=== PATIENT | female | born 1950 | race Caucasian/White ===

== ENCOUNTER 2017-06-16 07:55 | Day surgery (SDC) | payer MEDICARE, BC ==
[~2017-06-16 07:55] MED LIST: Midazolam 1 MG/ML 2 ML SDV ONE; Propofol 200 MG/20 ML SDV ONE; fentaNYL 100 MCG/2 ML SDV ONE
[2017-06-16] MEDS ORDERED: Lactated Ringers 1,000 ML IV SCH (08:15)
[2017-06-16 10:57] VITALS: BP 142/85
--- NOTE | 2017-06-16 12:15 | OR ---
DATE OF PROCEDURE: 06/16/2017 PREOPERATIVE DIAGNOSIS: Colon cancer screening. POSTOPERATIVE DIAGNOSIS: Unremarkable colonoscopy. PROCEDURE: Colonoscopy to the cecum. SURGEON: Ajay Lewis MD. ANESTHESIA: IV anesthesia with monitored anesthesia care. INDICATION: This 67-year-old white female is referred for a colonoscopy for colon cancer screening. She says her last colonoscopic exam was done ten years ago. I counseled her for the procedure including risks and alternatives, and she gave her informed consent to proceed. DESCRIPTION OF PROCEDURE: The patient was placed in the left lateral decubitus position. IV anesthesia was administered by the Anesthesia Service. Time-out was held. A rectal exam was performed, which was unremarkable. The flexible video Olympus colonoscope was introduced through her anus, up her rectum, and out her colon all way to the cecum. Once the cecum was reached, the scope was slowly withdrawn, examining the mucosa throughout. No mucosal abnormalities were noted. The scope was retroflexed in the rectum with the distal rectum appearing unremarkable. The scope was straightened and removed. She tolerated the procedure well. Ajay Lewis MD /[id number] MTDD
== END 2017-06-16 11:20 | disposition home or self-care (01) ==
LOC: JP.SDS 07:55
PROVIDERS: ATTEND Surgery
DX: Z12.11 Encounter for screening for malignant neoplasm of colon (principal); Z88.2 Allergy status to sulfonamides
CPT/HCPCS: G0121; J2250; J2704; J3010; J7120

== ENCOUNTER 2021-06-18 08:58 | Emergency (ER) | payer MEDICARE ==
[2021-06-18] MEDS ORDERED: Sodium Chloride 0.9% 10 ML Syringe FLUSH PRN (10:36)
[2021-06-18] MEDS ORDERED: HYDROmorphone 0.5 MG/0.5 ML Syringe IVPUSH ONE (10:37)
--- NOTE | 2021-06-18 10:43 | EDM.PDOC ---
ED HPI GENERAL MEDICAL PROBLEM - General Chief Complaint: Back Pain or Injury Stated Complaint: LOWER BACK PAIN Time Seen by Provider: 06/18/21 10:25 Source of Information: Reports: Patient History Limitations: Reports: No Limitations - History of Present Illness INITIAL COMMENTS - FREE TEXT/NARRATIVE: 71 yo generally healthy female presents with pretty severe low back pain that began while sitting about 7:30pm last night. Pain is constant and not worse with movement. There was no injury. Denies nausea, fever, pain with palpation, hematuria, dysuria or bloody stools. Her BM this AM was loose. No hx of the same. Denies BP above greg 120's on lisinopril 10 mg. Onset: Sudden Onset Date: 06/17/21 Onset Time: 19:30 Duration: Hour(s):, Constant Location: Reports: Back (low) Quality: Reports: Ache Severity: Moderate (8/10) Improves with: Reports: None Worsens with: Reports: None Context: Reports: Other (see HPI) Associated Symptoms: Reports: No Other Symptoms. 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) Right Lower Back Pain Score (Numeric/FACES): 8 - Related Data Allergies Allergy/AdvReac Type Severity Reaction Status Date / Time Sulfa (Sulfonamide Allergy Severe Hives Verified 06/18/21 09:36 Antibiotics) Home Meds: Home Meds Calcium Carb, Citrate/Vit D3 [Calcium + D3 ER Tablet] 1 tab PO BID 06/14/17 [History] Lutein 10 mg PO DAILY 06/14/17 [History] lisinopriL [Lisinopril] 10 mg PO DAILY 06/18/21 [History] Past Medical History - Past Health History Medical/Surgical History: Denies Medical/Surgical History HEENT History: Reports: Impaired Vision Other HEENT History: wears glasses Cardiovascular History: Reports: High Cholesterol, Hypertension Gastrointestinal History: Reports: None - Infectious Disease History Infectious Disease History: Reports: Chicken Pox, Measles, Mononucleosis, Mumps, Rubella - Past Surgical History HEENT Surgical History: Reports: None Cardiovascular Surgical History: Reports: None GI Surgical History: Reports: Colonoscopy Dermatological Surgical History: Reports: None Social & Family History - Tobacco Use Tobacco Use Status *Q: Never Tobacco User - Caffeine Use Caffeine Use: Reports: Tea - Recreational Drug Use Recreational Drug Use: No ED ROS GENERAL - Review of Systems Review Of Systems: See Below Constitutional: Denies: Fever, Chills HEENT: Reports: No Symptoms Respiratory: Reports: No Symptoms Cardiovascular: Reports: No Symptoms. Denies: Chest Pain Endocrine: Reports: No Symptoms GI/Abdominal: Reports: Abdominal Pain (mild, diffuse), Diarrhea (once). Denies: Black Stool, Bloody Stool, Constipation, Hematemesis, Hematochezia, Melena, Nausea, Vomiting : Reports: No Symptoms. Denies: Dysuria, Hematuria Musculoskeletal: Reports: Back Pain (low) Skin: Reports: No Symptoms Neurological: Reports: No Symptoms ED EXAM,LOWER BACK PAIN/INJURY - Physical Exam Exam: See Below Exam Limited By: No Limitations General Appearance: Alert, WD/WN, No Apparent Distress Eye Exam: Bilateral Eye: Normal Inspection Ears: Normal External Exam, Normal Canal, Hearing Grossly Normal, Normal TMs Nose: Normal Inspection, No Blood Throat/Mouth: Normal Inspection, Normal Lips, Normal Oropharynx, Normal Voice, No Airway Compromise Head: Atraumatic, Normocephalic Neck: Normal Inspection, Supple, Non-Tender, Limited Range of Motion Respiratory/Chest: No Respiratory Distress, Lungs Clear, Normal Breath Sounds, No Accessory Muscle Use Cardiovascular: Regular Rate, Rhythm, No Edema GI/Abdominal: Normal Bowel Sounds, Soft, Non-Tender, No Distention. No: Distended Back Exam: Normal Inspection, Other (mild increase in her pain on palpation just above the post iliac crest on the right. ). No: CVA Tenderness (R), CVA Tenderness (L) Extremities: Normal Inspection, Normal Range of Motion, Non-Tender, No Pedal Edema. No: Pedal Edema Neurological: Alert, Normal Mood/Affect, CN II-XII Intact, No Motor/Sensory Deficits, Oriented x 3 Psychiatric: Normal Affect, Normal Mood Skin Exam: Warm, Dry, Intact, Normal Color, No Rash Course - Vital Signs Last Recorded V/S: Last Vital Signs Temp 36.6 C 06/18/21 09:35 Pulse 117 H 06/18/21 13:09 Resp 16 06/18/21 09:35 BP 168/82 H 06/18/21 13:09 Pulse Ox 97 06/18/21 13:09 - Orders/Labs/Meds Orders: Active Orders 24 hr Category Date Time Status NS + KCl 20mEq/L [Normal Saline with 20 mEq KCl] 1,000 Med 06/18/21 12:15 A ctive ml IV ASDIRECTED Sodium Chloride 0.9% [Saline Flush] Med 06/18/21 10:36 Active 10 ml FLUSH ASDIRECTED PRN Saline Lock Insert [OM.PC] Routine Oth 06/18/21 10:36 Ordered Medication Orders Potassium Chloride/Sodium Chloride (Normal Saline With 20 Meq Kcl) 1,000 mls @ 1,000 mls/hr IV ASDIRECTED JOHN Last Admin: 06/18/21 12:40 Dose: 1,000 mls/hr Documented by: PREILOR Sodium Chloride (Sodium Chloride 0.9% 10 Ml Syringe) 10 ml FLUSH ASDIRECTED PRN PRN Reason: Keep Vein Open Last Admin: 06/18/21 11:01 Dose: 10 ml Documented by: [email or web address] Labs: Laboratory Tests 06/18/21 06/18/21 06/18/21 Range/Units 10:44 10:45 10:45 WBC 11.7 H (4.5-11.0) K/uL RBC 4.53 (3.30-5.50) M/uL Hgb 14.2 (12.0-15.0) g/dL Hct 43.7 (36.0-48.0) % MCV 97 (80-98) fL MCH 31 (27-31) pg MCHC 33 (32-36) % Plt Count 327 (150-400) K/uL D-Dimer, Quantitative (0.0-500.0) ng/mL Sodium 138 L (140-148) mmol/L Potassium 3.8 (3.6-5.2) mmol/L Chloride 101 (100-108) mmol/L Carbon Dioxide 27 (21-32) mmol/L Anion Gap 13.8 (5.0-14.0) mmol/L BUN 12 (7-18) mg/dL Creatinine 1.0 (0.6-1.0) mg/dL Est Cr Clr Drug Dosing 47.37 mL/min Estimated GFR (MDRD) 55 L (>60) Glucose 151 H (74-106) mg/dL Calcium 9.5 (8.5-10.1) mg/dL Troponin I High Sens 9.7 (<=60.3) pg/mL C-Reactive Protein (0.0-0.3) mg/dL TSH, Ultra Sensitive (0.358-3.740) uIU/mL Urine Color Yellow (YELLOW) Urine Appearance Clear (CLEAR) Urine pH 6.5 (5.0-8.0) Ur Specific [place] >= 1.030 (1.008-1.030) Urine Protein 30 H (NEGATIVE) mg/dL Urine Glucose (UA) 100 H (NEGATIVE) mg/dL Urine Ketones Negative (NEGATIVE) mg/dL Urine Occult Blood Trace-lysed H (NEGATIVE) Urine Nitrite Negative (NEGATIVE) Urine Bilirubin Negative (NEGATIVE) Urine Urobilinogen 0.2 (0.2-1.0) EU/dL Ur Leukocyte Esterase Negative (NEGATIVE) Urine RBC Not seen (0-5) Urine WBC 0-5 (0-5) Ur Epithelial Cells Few Amorphous Sediment Not seen Urine Bacteria Not seen Urine Mucus Moderate SARS CoV-2 RNA Rapid RENÉ 06/18/21 06/18/21 06/18/21 Range/Units 10:45 10:45 11:45 WBC (4.5-11.0) K/uL RBC (3.30-5.50) M/uL Hgb (12.0-15.0) g/dL Hct (36.0-48.0) % MCV (80-98) fL MCH (27-31) pg MCHC (32-36) % Plt Count (150-400) K/uL D-Dimer, Quantitative 822.05 H (0.0-500.0) ng/mL Sodium (140-148) mmol/L Potassium (3.6-5.2) mmol/L Chloride (100-108) mmol/L Carbon Dioxide (21-32) mmol/L Anion Gap (5.0-14.0) mmol/L BUN (7-18) mg/dL Creatinine (0.6-1.0) mg/dL Est Cr Clr Drug Dosing mL/min Estimated GFR (MDRD) (>60) Glucose (74-106) mg/dL Calcium (8.5-10.1) mg/dL Troponin I High Sens (<=60.3) pg/mL C-Reactive Protein 0.19 (0.0-0.3) mg/dL TSH, Ultra Sensitive 0.684 (0.358-3.740) uIU/mL Urine Color (YELLOW) Urine Appearance (CLEAR) Urine pH (5.0-8.0) Ur Specific [place] (1.008-1.030) Urine Protein (NEGATIVE) mg/dL Urine Glucose (UA) (NEGATIVE) mg/dL Urine Ketones (NEGATIVE) mg/dL Urine Occult Blood (NEGATIVE) Urine Nitrite (NEGATIVE) Urine Bilirubin (NEGATIVE) Urine Urobilinogen (0.2-1.0) EU/dL Ur Leukocyte Esterase (NEGATIVE) Urine RBC (0-5) Urine WBC (0-5) Ur Epithelial Cells Amorphous Sediment Urine Bacteria Urine Mucus SARS CoV-2 RNA Rapid RENÉ Negative Meds: Medications Generic Name Dose Route Start Last Admin Trade Name Freq PRN Reason Stop Dose Admin Potassium Chloride/Sodium Chloride 1,000 mls @ 1,000 mls/hr 06/18/21 12:15 06/18/21 12:40 Normal Saline With 20 Meq Kcl IV 1,000 mls/hr ASDIRECTED JOHN Administration Sodium Chloride 10 ml 06/18/21 10:36 06/18/21 11:01 Sodium Chloride 0.9% 10 Ml Syringe FLUSH 10 ml ASDIRECTED PRN Administration Keep Vein Open Discontinued Medications Generic Name Dose Route Start Last Admin Trade Name Freq PRN Reason Stop Dose Admin Acetaminophen 1,000 mg 06/18/21 11:28 06/18/21 12:38 Acetaminophen 500 Mg Tab PO 06/18/21 11:29 1,000 mg ONETIME ONE Administration Hydromorphone HCl 0.5 mg 06/18/21 10:37 06/18/21 11:01 Hydromorphone 0.5 Mg/0.5 Ml Syringe IVPUSH 06/18/21 10:38 0.5 mg ONETIME ONE Administration - Re-Assessments/Exams Free Text/Narrative Re-Assessment/Exam: 06/18/21 11:28 pain is better after Dilaudid. Still tachy with no respiratory sx's. Will check a Covid test. Free Text/Narrative Re-Assessment/Exam: 06/18/21 14:02 Feels a lot better after our interventions. Still not clear what is at the root of her presenting symptoms. Departure - Departure Time of Disposition: 14:03 Disposition: Home, Self-Care 01 Condition: Fair Clinical Impression: Tachycardia Low back pain Qualifiers: Chronicity: acute Back pain laterality: right Sciatica presence: without sciatica Qualified Code(s): M54.50 - Low back pain, unspecified HTN (hypertension) Qualifiers: Hypertension type: unspecified Qualified Code(s): I10 - Essential (primary) hypertension - Discharge Information *PRESCRIPTION DRUG MONITORING PROGRAM REVIEWED*: Not Applicable *COPY OF PRESCRIPTION DRUG MONITORING REPORT IN PATIENT HUGO: Not Applicable Instructions: Managing Your Hypertension Referrals: Mario Rosen MD [Primary Care Provider] - Forms: ED Department Discharge Additional Instructions: Take your BP machine with you to your next clinic appt to see if its readings match up with that of the clinic's(if you haven't already done this). Use acetaminophen and/or ibuprofen as needed for pain relief. Recheck with your provider early next week, call for an appt today. Sepsis Event Note (ED) - Evaluation Sepsis Screening Result: No Definite Risk - Focused Exam Vital Signs: Vital Signs Temp Pulse Resp BP Pulse Ox 06/18/21 13:09 117 H 168/82 H 97 06/18/21 11:59 98 146/62 H 91 L 06/18/21 10:37 123 H 193/109 H 06/18/21 09:43 127 H 202/114 H 06/18/21 09:35 36.6 C 121 H 16 204/114 H 98 - My Orders Last 24 Hours: My Active Orders 06/18/21 10:36 Sodium Chloride 0.9% [Saline Flush] 10 ml FLUSH ASDIRECTED PRN Saline Lock Insert [OM.PC] Routine 06/18/21 12:15 NS + KCl 20mEq/L [Normal Saline with 20 mEq KCl] 1,000 ml IV ASDIRECTED - Assessment/Plan Last 24 Hours: My Active Orders 06/18/21 10:36 Sodium Chloride 0.9% [Saline Flush] 10 ml FLUSH ASDIRECTED PRN Saline Lock Insert [OM.PC] Routine 06/18/21 12:15 NS + KCl 20mEq/L [Normal Saline with 20 mEq KCl] 1,000 ml IV ASDIRECTED
[2021-06-18] MEDS ORDERED: Acetaminophen 500 MG Tab PO ONE (11:28)
[2021-06-18] MEDS ORDERED: NS + KCl 20mEq/L 1,000 ML IV SCH (12:15)
[2021-06-18 14:21] VITALS: BP 170/81; PULSE 109
== END 2021-06-18 14:22 | disposition home or self-care (01) ==
LOC: JP.ED 08:58
DX: M54.50 Low back pain, unspecified (principal); R00.0 Tachycardia, unspecified; I10 Essential (primary) hypertension; E78.00 Pure hypercholesterolemia, unspecified; Z88.2 Allergy status to sulfonamides; Z79.899 Other long term (current) drug therapy; Z20.822 Contact with and (suspected) exposure to COVID-19
CPT/HCPCS: 36415; 80048; 81001; 84443; 84484; 85027; 85379; 86140; 96365; 96375; 99283; A9270; J1170; J3480; U0002

== ENCOUNTER 2022-10-07 07:55 | Day surgery (SDC) | payer MEDICARE ==
[~2022-10-07 07:55] MED LIST changes: +Bupivacaine 0.5% 50 ML MDV ONE; +Lidocaine 1% with EPINEPHrine 1:100,000 50 ML MDV ONE; -Midazolam 1 MG/ML 2 ML SDV ONE; -Propofol 200 MG/20 ML SDV ONE; -fentaNYL 100 MCG/2 ML SDV ONE
[2022-10-07] MEDS ORDERED: Propofol 200 MG/20 ML SDV ONE ×2 (08:26→10:37)
[2022-10-07] MEDS ORDERED: fentaNYL 100 MCG/2 ML SDV ONE (08:26)
[2022-10-07] MEDS ORDERED: ceFAZolin 2 GM in Premix Bag 1 BAG IV ONE (08:30)
[2022-10-07] MEDS ORDERED: Sodium Chloride 0.9% 1,000 ML IV SCH (08:30)
[2022-10-07 11:22] VITALS: BP 164/92; PULSE 105
== END 2022-10-07 12:00 | disposition home or self-care (01) ==
LOC: JP.SDS 07:55
PROVIDERS: ATTEND Surgery
DX: C43.62 Malignant melanoma of left upper limb, including shoulder (principal); Z53.09 Procedure and treatment not carried out because of other contraindication; I10 Essential (primary) hypertension; J30.9 Allergic rhinitis, unspecified; E78.00 Pure hypercholesterolemia, unspecified; Z98.890 Other specified postprocedural states; Z79.899 Other long term (current) drug therapy; Z88.2 Allergy status to sulfonamides
CPT/HCPCS: J2704; J3010; J7030; J3490

== ENCOUNTER 2022-10-17 06:25 | Day surgery (SDC) | payer MEDICARE ==
[2022-10-17] MEDS ORDERED: Sodium Chloride 0.9% 1,000 ML IV SCH (06:45)
[2022-10-17] MEDS ORDERED: ceFAZolin 2 GM in Premix Bag 1 BAG IV ONE (07:30)
[2022-10-17] MEDS ORDERED: Midazolam 1 MG/ML 2 ML SDV ONE (09:45)
[2022-10-17] MEDS ORDERED: fentaNYL 100 MCG/2 ML SDV ONE ×2 (09:45→13:57)
[2022-10-17] MEDS ORDERED: Propofol 200 MG/20 ML SDV ONE ×3 (09:45→13:52)
[2022-10-17] MEDS ORDERED: Lidocaine 1% with EPINEPHrine 1:100,000 50 ML MDV ONE (13:18)
[2022-10-17] MEDS ORDERED: Bupivacaine 0.5% 50 ML MDV ONE (13:18)
[2022-10-17] MEDS ORDERED: Lactated Ringers 1,000 ML ONE (14:14)
[2022-10-17] MEDS ORDERED: Ibuprofen 600 MG Tab PO ONE (15:09)
[2022-10-17 15:45] VITALS: PULSE 111
[2022-10-17 16:12] VITALS: BP 170/102
== END 2022-10-17 16:05 | disposition home or self-care (01) ==
LOC: JP.SDS 06:25
PROVIDERS: ATTEND Surgery
DX: C43.62 Malignant melanoma of left upper limb, including shoulder (principal); E78.00 Pure hypercholesterolemia, unspecified; I10 Essential (primary) hypertension; Z79.899 Other long term (current) drug therapy; Z88.2 Allergy status to sulfonamides
CPT/HCPCS: 11602; 38525; 78195; 88305; 88307; 88341; 88342; A9270; A9541; J0690; J2250; J2704; J3010; J3490; J7030; J7120